=== PATIENT | female | born 1990 | race Hispanic/Latino ===

== ENCOUNTER 2022-01-10 14:09 | Emergency (ER) | payer OTHER ==
[~2022-01-10] VITALS: Ht 165.1 cm; Wt 73.9 kg
[2022-01-10] MEDS ORDERED: PROMETHAZINE HC25 M1 PO (15:03)
[2022-01-10] MEDS ORDERED: ONDANSETRON ODT4 MG PO ×2 (15:03→17:48)
[2022-01-10] MEDS ORDERED: ONDANSETRON HCL INJ 2MG/ML 2ML 2 MG/ML VIAL IV STA (15:55)
[2022-01-10] MEDS ORDERED: FAMOTIDINE 20 MG/2 ML VIAL IV STA (15:55)
[2022-01-10] MEDS ORDERED: SODIUM CHLORIDE 0.9% 1000ML 1,000 ML IV SCH (16:00)
[2022-01-10] MEDS ORDERED: SODIUM CHLORIDE 0.9% 1000ML 1,000 ML ONE (16:13)
[2022-01-10] MEDS ORDERED: ONDANSETRON HCL INJ 2MG/ML 2ML 2 MG/ML VIAL ONE (16:13)
[2022-01-10] MEDS ORDERED: FAMOTIDINE 20 MG/2 ML VIAL IV ONE (16:13)
[2022-01-10] MEDS ORDERED: PROMETHAZINE 12.5MG/ NACL 0.9% 12.5 MG/50 ML BAG IV ONE (16:30)
[2022-01-10] MEDS ORDERED: PROMETHAZINE HCL (IM) 25 MG/ML VIAL IM ONE (16:39)
[2022-01-10] MEDS ORDERED: CEFTRIAXONE 1 GM VIAL ONE (17:54)
== END 2022-01-10 18:07 | disposition home or self-care (01) ==
LOC: FSED 14:16
DX: O21.0 Mild hyperemesis gravidarum (principal); Z3A.12 12 weeks gestation of pregnancy; O99.891 Other specified diseases and conditions complicating pregnancy; R82.71 Bacteriuria
CPT/HCPCS: 80048; 80076; 81003; 81025; 85025; 96374; 96375; 99283; J0696; J2405; J2550; J7030